=== PATIENT | male | born 1960 | race Caucasian/White ===

== ENCOUNTER 2018-07-21 21:22 | Emergency (ER) | payer BC ==
[~2018-07-21 21:22] MED LIST: ASA81 MG; ONDANSETRON ODT4 M1; Z.0.FLOMAX0.4 MG; Z.0.PRINIVIL10 MG; Z.1.CIPROFLOXACIN500; [UNRECOGNIZED DRUG - CODE]
--- OUTSIDE RECORDS SUMMARY | 2018-07-21 21:25 | XMS REPORT | Summary of Care ---
Author Author [facility] [place] Organization [facility] [place] Address Unknown Phone Unavailable Encounter HQ [place](FIN) [id number] Date(s): 07/07/17 - 07/07/17 [facility] [place] [address] [place], [place] [address] [id number] [phone] Discharge Disposition: Home or Self Care Attending Physician: Amadou Norton MD Vital Signs Most recent to 1 oldest [Reference Range]: Height 180.34 cm (07/07/17 8:00 AM) Temperature Oral 97.8 DegF [96.4-99.1 DegF] (07/07/17 8:00 AM) Blood Pressure 124/75 mmHg [90-140/60-90 mmHg] (07/07/17 8:00 AM) Respiratory Rate 16 BRMIN [14-20 BRMIN] (07/07/17 8:00 AM) Peripheral Pulse 67 bpm Rate [60-100 bpm] (07/07/17 8:00 AM) Weight 102.273 kg (07/07/17 8:00 AM) Body Mass Index 31.45 m2 (07/07/17 8:00 AM) Problem List Condition Effective Dates Status Health Status Informant Chicken Resolved pox(Confirmed) Allergies, Adverse Reactions, Alerts Substance Reaction Severity Status codeine Mild Active Medications atorvastatin 40 mg oral tablet 40 mg=1 tab, PO, Bedtime, # 90 tab, 1 Refill(s), Pharmacy: [facility] Start Date: 07/07/17 Stop Date: 01/03/18 Status: Ordered Results No data available for this section Immunizations No data available for this section Procedures Procedure Date Related Diagnosis Body Site Arthroscopic knee operation Surgical removal of wisdom tooth Tonsillectomy Social History Social History Type Response Substance Abuse Use: None. Employment/School Status: Employed. Work/School description: [employer]. Activity level: Occasional physical work. Alcohol Past Smoking Status Never smoker; Type: Chewing tobacco; Exposure to Tobacco Smoke None; Cigarette Smoking Last 365 Days No; Reg Smoking Cessation Counseling No; Started at age: 14.0; Assessment and Plan No data available for this section
--- OUTSIDE RECORDS SUMMARY | 2018-07-21 21:25 | XMS REPORT | Continuity of Care Document ---
Author Author [facility] Interface Address Unknown Phone Unavailable Problems Problem Status Onset Date Classification Date Reported Comments Source Chicken pox Resolved Problem 07/10/2017 [facility] Medications Medication Details Route Status Patient Instructions Ordering Provider Order Date Source atorvastatin 40 mg oral tablet 40 mg=1 tab, PO, Bedtime, # 90 tab, 1 Refill(s), Pharmacy: [facility] Active 07/07/2017 [facility] Allergies, Adverse Reactions, Alerts Substance Category Reaction Severity Reaction type Status Date Reported Comments Source codeine Assertion Mild Drug allergy Active [facility] Immunizations Immunization Date Given Site Status Last Updated Comments Source Results Order Name Results Value Reference Range Date Interpretation Comments Source Vital Signs Vital Sign Value Date Comments Source Weight 102.273 07/07/2017 [facility] BMI Calculated 31.45 07/07/2017 [facility] Heart Rate 67 07/07/2017 [facility] Respitory Rate 16 07/07/2017 [facility] Temperature Oral (F) 97.8 F 07/07/2017 [facility] Height 180.34 cm 07/07/2017 [facility] Systolic (mm Hg) 124 07/07/2017 [facility] Diastolic (mm Hg) 75 07/07/2017 [facility] Encounters Location Location Details Encounter Type Encounter Number Reason For Visit Attending Provider ADM Date DC Date Status Source Outpatient [id number] AMADOU NORTON 06/11/2016 Active [facility] Outpatient [id number] JADYN REYES 12/10/2016 Active [facility] Outpatient [id number] AMADOU NORTON 05/27/2017 Active [facility] Outpatient [id number] AMADOU NORTON 07/07/2017 Active [facility] [place] Outpatient [id number] Amadou Norton 07/07/2017 07/08/2017 [facility] Outpatient [id number] AMADOU NORTON 06/08/2018 Active [facility] Procedures Procedure Code Date Perfomer Comments Source Arthroscopic knee operation [id number] [facility] Surgical removal of wisdom tooth [id number] [facility] Tonsillectomy [id number] [facility]
== END 2018-07-21 21:24 | disposition left against medical advice (07) ==
LOC: ER 21:22
DX: I10 Essential (primary) hypertension (principal)